=== PATIENT | male | born 1970 | race Two or more races ===

== ENCOUNTER 2017-09-13 03:26 | Emergency (ER) | payer SELFPAY, OTHER ==
[2017-09-13] MEDS: SOD CHLORIDE 0.9% 1,000 ML IV (05:28)
== END 2017-09-13 06:45 | disposition home or self-care (01) ==
LOC: FTE 03:26
DX: R04.0 Epistaxis (principal); I10 Essential (primary) hypertension
CPT/HCPCS: 99284-25; J7030

== ENCOUNTER 2017-09-14 00:38 | Emergency (ER) | payer MEDICAID ==
[2017-09-14] MEDS: AMLODIPINE 5 MG TAB PO (02:48)
[2017-09-14] MEDS: LISINOPRIL 20 MG TAB PO (02:48)
[2017-09-14] MEDS: HYDROCHLOROTHIAZIDE 25 MG TAB PO (02:49)
== END 2017-09-14 03:19 | disposition home or self-care (01) ==
LOC: FTE 00:38
DX: Z76.0 Encounter for issue of repeat prescription (principal); I10 Essential (primary) hypertension; Z48.00 Encounter for change or removal of nonsurgical wound dressing
CPT/HCPCS: 88305; 88312; 99281